=== PATIENT | male | born 1935 | race Caucasian/White ===

== ENCOUNTER 2020-07-30 10:41 | Day surgery (SDC) | payer OTHER ==
[2020-07-24 08:51] LABS: BASOPHILS % (AUTO) 0.3 % (0-1); EOSINOPHILS # (AUTO) 0.2 X10'3 (0-0.9); EOSINOPHILS % (AUTO) 3.6 % (0-6); HEMATOCRIT 40.2 % (42.0-52.0); HEMOGLOBIN 13.5 g/dl (14.0-17.9); LYMPHOCYTES # (AUTO) 0.9 X10'3 (1.1-4.8); LYMPHOCYTES % (AUTO) 17.4 % (21-51); MEAN CORPUSCULAR HEMOGLOBIN 31.4 PG (27.0-31.0); MEAN CORPUSCULAR HGB CONC 33.5 g/dL (33.0-36.5); MEAN CORPUSCULAR VOLUME 93.8 FL (78-98); MEAN PLATELET VOLUME 8.3 FL (7.4-10.4); MONOCYTES # (AUTO) 0.9 X10'3 (0-0.9); MONOCYTES % (AUTO) 17.1 % (2-12); NEUTROPHILS # (AUTO) 3.2 X10'3 (1.8-7.7); NEUTROPHILS % (AUTO) 61.6 % (42-75); PLATELET COUNT 195 X10'3 (140-440); RED BLOOD COUNT 4.28 X10'6 (4.70-6.10); RED CELL DISTRIBUTION WIDTH 13.2 % (11.5-14.5); WHITE BLOOD COUNT 5.1 X10'3 (4.5-11.0)
[2020-07-24 08:59] LABS: PARTIAL THROMBOPLASTIN TIME 27 SECONDS (22-32)
[2020-07-24 09:00] LABS: ALANINE AMINOTRANSFERASE 18 U/L (12-78); ALBUMIN 3.5 G/DL (3.4-5.0); ALBUMIN/GLOBULIN RATIO 0.9 (1.1-1.5); ALKALINE PHOSPHATASE 76 IU/L (46-116); ANION GAP 9 (8-16); ASPARTATE AMINO TRANSFERASE 14 U/L (10-37); BILIRUBIN,TOTAL 0.6 MG/DL (0.1-1.0); BLOOD UREA NITROGEN 49 MG/DL (7-18); BUN/CREATININE RATIO 28.3 (5.4-32.0); CHLORIDE 104 MMOL/L (99-107); CREATININE 1.73 MG/DL (0.60-1.10); GLUCOSE 113 MG/DL (70-104); POTASSIUM 4.3 MMOL/L (3.5-5.1); SODIUM 141 MMOL/L (135-145); TOTAL CARBON DIOXIDE 27.8 MMOL/L (24-32); TOTAL PROTEIN 7.3 G/DL (6.4-8.2); eGFR 38 ML/MIN
[2020-07-24 09:09] LABS: CALCIUM 9.4 MG/DL (8.5-10.1)
[2020-07-24 09:49] LABS: LARGE PLATELETS FEW; PLATELET ESTIMATE NORMAL; TOTAL CELLS COUNTED 100
[2020-07-30] VITALS (12 sets, daily range): BP systolic 129–197; BP diastolic 64–89
[~2020-07-30] VITALS: Ht 188 cm; Wt 93.1 kg
[~2020-07-30 10:41] MED LIST: FLO0.4C PO; LEVO125T PO
[2020-07-30] MEDS ORDERED: diphenhydrAMINE 25mg capsule PO PRN (11:05)
[2020-07-30] MEDS ORDERED: normal saline 1,000 ML IV SCH (11:05)
[2020-07-30] MEDS ORDERED: LORazepam 0.5 MG tablet PO PRN (11:05)
[2020-07-30] MEDS ORDERED: nitroGLYCERIN 0.4mg SUBLingual tab SL PRN (11:05)
[2020-07-30] MEDS ORDERED: LISI1TAB29 PO (11:27)
[2020-07-30] MEDS ORDERED: ATEN50TA PO (11:27)
[2020-07-30] MEDS ORDERED: NITR0.4T51 SL (11:27)
[2020-07-30] MEDS ORDERED: TRAZ-251 PO (11:27)
[2020-07-30] MEDS ORDERED: midazolam 1 mg/ML 2ml injection ONE (12:05)
[2020-07-30] MEDS ORDERED: LIDOcaine 1% (10mg/ml)w/preservative injection 20ml MDV ONE (12:05)
[2020-07-30] MEDS ORDERED: iohexol 350MG/ML 100ml bottle IV ONE (12:05)
[2020-07-30] MEDS ORDERED: iohexol 350 MG/ML 50ML vial IV ONE ×2 (12:05→12:54)
[2020-07-30] MEDS ORDERED: fentaNYL/PF 50MCG/1 ML 2ML syringe ONE (12:05)
[2020-07-30] MEDS ORDERED: ondansetron/PF 4mg/2ml inj IV PRN (13:55)
[2020-07-30] MEDS ORDERED: OXAZEpam 15mg capsule PO PRN (14:00)
[2020-07-30] MEDS ORDERED: acetaminophen 325mg tablet PO PRN (14:00)
[2020-07-30] MEDS ORDERED: HYDROcodone/acetaminophen 5mg/325mg tablet PO PRN (14:00)
[2020-07-30] MEDS ORDERED: HYDROcodone/acetaminophen 10/325mg tab PO PRN (14:00)
[2020-07-30] MEDS ORDERED: proCHLORperazine 10 MG/2 ml inj IV PRN (14:00)
== END 2020-07-30 19:25 | disposition home or self-care (01) ==
LOC: SSTAY O 10:41
PROVIDERS: ATTEND Internal Medicine Cardiovascular Disease
DX: R94.39 Abnormal result of other cardiovascular function study (principal); I25.119 Atherosclerotic heart disease of native coronary artery with unspecified angina pectoris; I10 Essential (primary) hypertension; F32.9 Major depressive disorder, single episode, unspecified; E78.5 Hyperlipidemia, unspecified; I35.2 Nonrheumatic aortic (valve) stenosis with insufficiency; K21.9 Gastro-esophageal reflux disease without esophagitis; E03.9 Hypothyroidism, unspecified; Z90.79 Acquired absence of other genital organ(s); Z79.82 Long term (current) use of aspirin; Z85.46 Personal history of malignant neoplasm of prostate; Z86.73 Personal history of transient ischemic attack (TIA), and cerebral infarction without residual deficits; Z87.891 Personal history of nicotine dependence; Z79.01 Long term (current) use of anticoagulants; Z79.899 Other long term (current) drug therapy
CPT/HCPCS: 71046; 80053; 85025; 85610; 85730; 93005; 93458; 93567; 99152; 99153; C1760; C1769; J1644; J2001; J2250; J3010; J7030; Q0163; Q9967; 85007; A4620; A6258

== ENCOUNTER 2022-10-20 09:09 | Outpatient (CLI) | payer OTHER ==
[~2022-10-20 09:09] MED LIST changes: +ATEN50TA PO; -FLO0.4C PO; +LISI1TAB53 PO; +NITR0.4T51 SL; +TRAZ-251 PO
[2022-10-20 10:10] LABS: BASOPHILS % (AUTO) 0.5 % (0-1); EOSINOPHILS # (AUTO) 0.3 X10'3 (0-0.9); EOSINOPHILS % (AUTO) 5.3 % (0-6); HEMATOCRIT 33.3 % (42.0-52.0); LYMPHOCYTES % (AUTO) 18.5 % (21-51); MEAN CORPUSCULAR HEMOGLOBIN 28.5 PG (27.0-31.0); MEAN CORPUSCULAR HGB CONC 33.1 g/dL (33.0-36.5); MEAN CORPUSCULAR VOLUME 86.2 FL (78-98); MEAN PLATELET VOLUME 8.3 FL (7.4-10.4); MONOCYTES # (AUTO) 0.8 X10'3 (0-0.9); MONOCYTES % (AUTO) 15.2 % (2-12); NEUTROPHILS # (AUTO) 3.4 X10'3 (1.8-7.7); NEUTROPHILS % (AUTO) 60.5 % (42-75); PLATELET COUNT 206 X10'3 (140-440); RED BLOOD COUNT 3.86 X10'6 (4.70-6.10); WHITE BLOOD COUNT 5.5 X10'3 (4.5-11.0)
[2022-10-20 10:21] LABS: APTT 30 SECONDS (22-32)
[2022-10-20 10:27] LABS: ALANINE AMINOTRANSFERASE 19 U/L (12-78); ALBUMIN 3.6 G/DL (3.4-5.0); ALKALINE PHOSPHATASE 81 IU/L (46-116); ANION GAP 7 (8-16); ASPARTATE AMINO TRANSFERASE 11 U/L (10-37); BILIRUBIN,TOTAL 0.4 MG/DL (0.1-1.0); BLOOD UREA NITROGEN 59 MG/DL (7-18); BUN/CREATININE RATIO 21.3 (10.0-20.0); CALCIUM 8.8 MG/DL (8.5-10.1); CHLORIDE 102 MMOL/L (99-107); CREATININE 2.77 MG/DL (0.60-1.10); GLUCOSE 90 MG/DL (70-104); POTASSIUM 5.2 MMOL/L (3.5-5.1); SODIUM 133 MMOL/L (135-145); TOTAL CARBON DIOXIDE 23.9 MMOL/L (24-32); TOTAL PROTEIN 7.2 G/DL (6.4-8.2); eGFR 22 ML/MIN
[2022-10-20 10:58] LABS: ACANTHOCYTES FEW; ANISOCYTOSIS 1+; ELLIPTOCYTES FEW; LARGE PLATELETS FEW; PLATELET ESTIMATE NORMAL
[2022-10-20] MEDS ORDERED: albuterol 2.5 MG/3 ML nebule NEB ONE (12:35)
== END 2022-10-20 23:59 | disposition home or self-care (01) ==
LOC: VAS 09:09
PROVIDERS: ATTEND Internal Medicine Cardiovascular Disease
DX: I08.0 Rheumatic disorders of both mitral and aortic valves (principal); R06.02 Shortness of breath; I65.29 Occlusion and stenosis of unspecified carotid artery; N62 Hypertrophy of breast; I70.0 Atherosclerosis of aorta; I25.10 Atherosclerotic heart disease of native coronary artery without angina pectoris; J90 Pleural effusion, not elsewhere classified; J98.11 Atelectasis; J43.2 Centrilobular emphysema; K44.9 Diaphragmatic hernia without obstruction or gangrene; K76.0 Fatty (change of) liver, not elsewhere classified; D18.09 Hemangioma of other sites; R16.1 Splenomegaly, not elsewhere classified; N28.1 Cyst of kidney, acquired; K57.30 Diverticulosis of large intestine without perforation or abscess without bleeding; K40.90 Unilateral inguinal hernia, without obstruction or gangrene, not specified as recurrent; K42.9 Umbilical hernia without obstruction or gangrene; M40.294 Other kyphosis, thoracic region; M47.814 Spondylosis without myelopathy or radiculopathy, thoracic region; M47.817 Spondylosis without myelopathy or radiculopathy, lumbosacral region; I65.23 Occlusion and stenosis of bilateral carotid arteries
CPT/HCPCS: 36415; 71046; 71275; 74174; 80053; 85008; 85025; 85610; 85730; 93880